=== PATIENT | female | born 1950 | race Caucasian/White ===

== ENCOUNTER → 2021-08-16 08:48 | Outpatient (CLI) | payer MEDICARE, SELFPAY ==
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
== END ==
PROVIDERS: PCP Nurse Practitioner Family; Visit Provider Nurse Practitioner Family
DX: I70.213 Atherosclerosis of native arteries of extremities with intermittent claudication, bilateral legs (principal); M79.605 Pain in left leg; M79.604 Pain in right leg
CPT/HCPCS: 93923

== ENCOUNTER → 2022-04-30 14:07 | Outpatient (POV) | payer MEDICARE, SELFPAY | PROVIDERS: Visit Provider Dermatology | DX: Z00.00 Encounter for general adult medical examination without abnormal findings (principal) ==

== ENCOUNTER 2024-01-30 09:00 | Outpatient (RCR) | payer MEDICARE, SELFPAY | END 2024-01-30 10:15 | disposition home or self-care (01) | LOC: PT 09:00 | PROVIDERS: Visit Provider Orthopaedic Surgery | DX: M25.561 Pain in right knee (principal); Z96.651 Presence of right artificial knee joint | CPT/HCPCS: 97010; 97110; 97112; 97116; 97140; 97163; 97164; 97530 ==

== ENCOUNTER 2024-10-19 11:00 | Outpatient (RCR) | payer MEDICARE, SELFPAY | END 2024-10-19 23:59 | disposition home or self-care (01) | LOC: PT 11:00 | PROVIDERS: PCP Nurse Practitioner Family; Visit Provider Orthopaedic Surgery | DX: M17.12 Unilateral primary osteoarthritis, left knee (principal); Z96.652 Presence of left artificial knee joint | CPT/HCPCS: 97014; 97016; 97110; 97163; 97530; G0283 ==

== ENCOUNTER 2025-06-28 10:17 | Emergency (ER) | payer MEDICARE, SELFPAY ==
[2025-06-28 10:19] VITALS: BP 176/86; PULSE 59; O2SAT 97
--- NOTE | 2025-06-28 10:23 | CT_ITS ---
FINAL REPORT TECHNIQUE: Thin section axial images were obtained from skull base to vertex without contrast. Coronal and sagittal reconstruction images were obtained from the axial data. Exam was performed using dose reduction techniques such as automated exposure control, adjustment of the mA and kV according to patient size, and use of iterative reconstruction technique. CLINICAL HISTORY: fall COMPARISON: None FINDINGS: There is atrophy. No mass effect or midline shift. No intracranial hemorrhage. No hydrocephalus. Periventricular low density is likely related to changes of chronic small vessel ischemia. The basilar cisterns are preserved. The posterior fossa is without acute abnormality. There is mild soft tissue edema involving the left parietal scalp. No acute osseous abnormality is identified. IMPRESSION: No acute intracranial abnormality. Atrophy and changes suggesting chronic small vessel ischemia. Reviewed, Interpreted and Dictated by Olesya Ferreira MD Transcribed by Fara Posadas Authenticated and [facility]
--- NOTE | 2025-06-28 10:23 | CT_ITS ---
FINAL REPORT TECHNIQUE: Thin section axial images were obtained through the cervical spine without contrast. Multiplanar reconstruction images were obtained from the axial data. Exam was performed using dose reduction techniques. This study was performed with techniques to keep radiation doses as low as reasonably achievable (ALARA). Individualized dose reduction techniques using automated exposure control or adjustment of mA and/or kV according to the patient's size were employed. CLINICAL HISTORY: fall COMPARISON: None FINDINGS: There is no acute fracture or acute malalignment of the cervical spine. There is no evidence of unilateral or bilateral facet lock. The craniocervical junction is intact. There is multilevel degenerative disc disease present, most pronounced at the C5-6 and C6-7 levels. Vertebral body height is preserved. No acute paraspinal abnormality is identified. IMPRESSION: No acute osseous abnormality of the cervical spine. Reviewed, Interpreted and Dictated by Olesya Ferreira MD Transcribed by Fara Posadas Authenticated and [facility]
--- NOTE | 2025-06-28 10:23 | CT_ITS ---
FINAL REPORT CLINICAL HISTORY: fall COMPARISON: None FINDINGS: Axial images through the pelvis were performed by computed tomography. Sagittal and coronal reconstruction images were performed. This study was performed with techniques to keep radiation doses as low as reasonably achievable (ALARA). Individualized dose reduction techniques using automated exposure control or adjustment of mA and/or kV according to the patient's size were employed. No acute fracture of the pelvis or either hip is identified. No dislocation identified. There is degenerative joint disease involving both the SI joints and bilateral hips. No acute soft tissue abnormality. IMPRESSION: Degenerative changes without acute fracture of the pelvis or either hip. Reviewed, Interpreted and Dictated by Olesya Ferreira MD Transcribed by Fara Posadas Authenticated and [facility]
[2025-06-28 10:24] VITALS: BP 176/86; PULSE 55; RESP 14; TEMP 36.4; O2SAT 97; BMI 26.6
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
--- NOTE | 2025-06-28 10:33 | PC.WOUNDNOTE ---
pt to ct
--- OUTSIDE RECORDS SUMMARY | 2025-06-28 10:35 | XMS_ITS | Referral Summary ---
Author Organization [facility] Address [address] [place] [address] Phone Care Team Providers Care Yoke Presser Name Role Phone Win Phan MD Primary Care Provider Allergies Active Allergy Reactions Criticality Noted Date Comments Sulfa Antibiotics Hives,Shortness of Breath High 09/2015 Medications bisoprolol (ZEBETA) 5 MG TABS Take 5 mg by mouth daily. Active Active Problems Problem Noted Date Diagnosed Date Acute lateral meniscus tear of left knee 016 Acute lateral meniscus tear of left knee 016 Acute medial meniscus tear of right knee 016 Social History Tobacco Use Types Packs/Day Years Used Date Smoking Tobacco: Never Smokeless Tobacco: Never Alcohol Use Standard Drinks/Week Comments No 0 (1 standard drink = 0.6 oz pur e alcohol) Comments No Sex and Gender Information Value Date Recorded Sex Assigned at Not on file Legal Sex Female 8:46 PM EDT Gender Identity Female 05/13/2018 5:49 PM EDT Sexual Orientation Not on file Last Filed Vital Signs Vital Sign Reading Time Taken Comments Blood Pressure 179/84 05/27/2018 12:25 PM EDT Pulse 46 05/27/2018 12:36 PM EDT Temperature 36.2 C (97.2 F) 05/27/2018 12:10 PM EDT Respiratory Rate 17 05/27/2018 12:36 PM EDT Oxygen Saturation 100% 05/27/2018 12:25 PM EDT Inhaled Oxygen Concentration - - Weight 85.7 kg (189 lb) 05/27/2018 10:25 AM EDT Height 165.1 cm (5' 5 ) 05/27/2018 10:25 AM EDT Body Mass Index 31.45 05/27/2018 10:25 AM EDT Functional Status * Are you deaf or do you have serious difficulty hearing? Answer Date of Assessment Author No 05/26/2018 10:31 AM EDT DayDari Registered Nurse * Are you blind or do you have serious difficulty seeing, even when wearing glasses? Answer Date of Assessment Author No 05/26/2018 10:31 AM EDT DayDari Registered Nurse * Do you have serious difficulty walking or climbing stairs? (5 years old or older) Answer Date of Assessment Author No 05/26/2018 10:31 AM EDT DayDari Registered Nurse * Do you have difficulty dressing or bathing? (5 years old or older) Answer Date of Assessment Author No 05/26/2018 10:31 AM EDT DayDari Registered Nurse * Because of a physical, mental, or emotional condition, do you have difficulty doing errands alone such as visiting a doctor???s office or shopping? (15 years old or older) Answer Date of Assessment Author No 05/26/2018 10:31 AM EDT DayDari Registered Nurse Mental Status * Because of a physical, mental, or emotional condition, do you have serious difficulty concentrating, remembering, or making decisions? (5 years old or older) Answer Entry Date Author No 05/26/2018 10:31 AM EDT DayDari Registered Nurse Plan of Treatment Not on file Medical Devices Implanted Type Area Sandblast Or Shotblast Equipment Tender Device Identifier Shelf Expiration Date Model / Serial / Lot Clarix Cord 1k 4.0x3.0 Cm Implanted:Qty: 1 on 07/09/2017 by Kenzie Torres DPM at [facility] Right: Foot [employer] CR-10-3750 / / Hammerfix Implant Small Implanted:Qty: 1 on 07/09/2017 by Kenzie Torres DPM at [facility] Right: Foot [employer] [id number] / / Clarix Cord 1k 2.5x2.5cn Implanted:Qty: 1 on 05/27/2018 by Kenzie Torres DPM at [facility] Left: Foot [employer] 02/10/2020 CR-10-2525 / [id number] / Administered Medications Insurance Care Teams Yoke Presser Relationship Specialty Start Date End Date Win Phan MD PCP - General Family Medicine 02/28/15
--- OUTSIDE RECORDS SUMMARY | 2025-06-28 10:35 | XMS_ITS | Clinical Summary ---
Author Organization [facility] Address [address] [place] [address] Phone Care Team Providers Care Climatology Professor Name Role Phone Win Phan MD Primary Care Provider [phone] Allergies Active Allergy Reactions Criticality Noted Date [...] Mass Index 31.45 05/27/2018 10:25 AM EDT Plan of Treatment Health Maintenance Due Date Last Done Comments Hepatitis C Screening 1948 DTap,Tdap,and Td (1 - Tdap) 1959 Pneumococcal 50+ (1 of 1 - PCV) 1998 Shingrix (#1) 1998 DEXA Scan 2013 RSV Vaccine (60+ or ) (1 - 1-dose 75+ series) 2023 Influenza Vaccine (#1) 2025 HPV Aged Out No longer eligi ble based on patient's age to complete this topic Meningococcal conjugate matt nt 4 (MCV4) Aged Out No longer eligible b ased on patient's age to complete this topic RSV Immunization (<20 months) Aged Out No longer eligible based on patient's age to complete this topic Medical Devices Implanted Type Area Development And Planning Engineer Device Identifier Shelf Expiration Date Model / Serial / Lot Clarix Cord 1k 4.0x3.0 Cm Implanted:Qty: 1 on 07/09/2017 by Kenzie Torres DPM at [facility] Right: Foot [employer] CR-[id number] / / [employer] Implant Small Implanted:Qty: 1 on 07/09/2017 by Kenzie Torres DPM at [facility] Right: Foot [employer] [id number] / / Clarix Cord 1k 2.5x2.5cn Implanted:Qty: 1 on 05/27/2018 by Kenzie Torres DPM at [facility] Left: Foot [employer] 02/10/2020 CR-10-2525 / [id number] / Insurance H[employer] MEDICARE ALL OTHER Care Teams Climatology Professor Relationship Specialty Start Date End Date Win Phan MD PCP - General Family Medicine 02/28/15
--- OUTSIDE RECORDS SUMMARY | 2025-06-28 10:35 | XMS_ITS | Encounter Summary ---
Author Organization [facility] Address [address] [place] [address] Phone Care Team Providers Care Finish Mender Name Role Phone Win Phan MD Primary Care Provider Encounter Details Date Type Department Care Team ([facility] st Contact Info) Description 06/01/2018 Discharge Call Center Patient Call Center [address] [place] [id number] Social History Tobacco Use Types Packs/Day Years [...] PM EDT Sexual Orientation Not on file documented as of this encounter Functional Status * Are you deaf or do you have serious difficulty hearing? Answer Date of Assessment Author No 05/26/2018 10:31 AM EDT Dari Mcbride Registered Nurse * Are you blind or do you have serious difficulty seeing, even when wearing glasses? Answer Date of Assessment Author No 05/26/2018 10:31 AM EDT Dari Mcbride Registered Nurse * Do you have serious difficulty walking or climbing stairs? (5 years old or older) Answer Date of Assessment Author No 05/26/2018 10:31 AM EDT Dari Mcbride Registered Nurse * Do you have difficulty dressing or bathing? (5 years old or older) Answer Date of Assessment Author No 05/26/2018 10:31 AM EDT Day, Bet h, Registered Nurse * Because of a physical, mental, or emotional condition, do you have difficulty doing errands alone such as visiting a doctor???s office or shopping? (15 years old or older) Answer Date of Assessment Author No 05/26/2018 10:31 AM EDT Dari Mcbride Registered Nurse documented as of this encounter Mental Status * Because of a physical, mental, or emotional condition, do you have serious difficulty concentrating, remembering, or making decisions? (5 years old or older) Answer Entry Date Author No 05/26/2018 10:31 AM EDT DayDari Registered Nurse documented in this encounter Plan of Treatment Not on file documented as of this encounter Visit Diagnoses Not on filedocumented in this encounter Care Teams Finish Mender Relationship Specialty Start Date End Date Win Phan MD PCP - General Family Medicine 02/28/15 documented as of this encounter
--- OUTSIDE RECORDS SUMMARY | 2025-06-28 10:35 | XMS_ITS ---
Author Organization Unknown Allergies, Adverse Reactions and Alerts Date IsAllergic OnsetDate Allergen Reaction Type Severity Srinath rgyCode Legacyallergictoid ReactionCode ReactionCodeSystemID Custom 05/09 00:00 :00 1 Percocet [id number] 05/09 00:00 :00 1 Sulfa 12/03 00:00 :00 1 Percocet [id number] 12/03 00:00 :00 1 Sulfa 08/20 00:00 :00 1 Percocet [id number] 08/20 00:00 :00 1 Sulfa 08/05 00:00 :00 1 Percocet [id number] 08/05 00:00 :00 1 Sulfa 08/05 00:00 :00 1 Percocet [id number] 08/05 00:00 :00 1 Sulfa 08/04 00:00 :00 1 Percocet [id number] 08/04 00:00 :00 1 Sulfa
--- OUTSIDE RECORDS SUMMARY | 2025-06-28 10:35 | XMS_ITS | Clinical Summary ---
Author Organization [facility] Address [address] [place] [id number] Care Team Providers Care Shingle Packer Name Role Phone Pacheco Phan Primary Care Provider [phone] Allergies Active Allergy Reactions Criticality Noted Date Comments Oxycodone-Acetamin ophen Nausea And Vomiting High 08/28/2023 SYNCOPE, denies allergy to Acetaminophen Sulfa (Sulfonamide Antibiotics) Hives,Shortness Of Breath High 02/28/2015 Medications bisoprolol (ZEBETA) 10 mg tablet Take 1 Tab by mouth daily. 0 Active losartan (COZAAR) 25 mg Tablet Take 25 mg by mouth daily. 3 Active MULTIVITAMIN PO Take by mouth daily. Active methylPREDNISolo ne (Medrol, Stan,) 4 mg tab (dosepak)Indicat ions:Aftercare following left knee joint replacement surgery follow package directions 21 Tablet 5 Active Active Problems Problem Noted Date Diagnosed Date Primary osteoarthritis of left knee 07/13/2024 History of total knee arthroplasty, right 2023 Primary osteoarthritis of right knee 10/22/2023 Family History Medical History Relation Name Comments Arthritis Mother Wendy Mei Diabetes Mother Wendy Mei High Blood Pressure Mother Wendy Mei Stroke Mother Wendy Mei Anesthesia Complications Neg Hx Heart Problems Neg Hx Relation Name Status Comments Mother Wendy Mei Social History Tobacco Use Types Packs/Day Years Used Date Smoking Tobacco: Never Smokeless Tobacco: Never Tobacco Cessation:Counseling Given: Not Answered Alcohol Use Standard Drinks/Week Comments Never 0 (1 standard drink = 0.6 oz pur e alcohol) Comments No Sex and Gender Information Value Date Recorded Sex Assigned at Not on file Legal Sex Female 4:40 PM EST Gender Identity Not on file Sexual Orientation Not on file Last Filed Vital Signs Vital Sign Reading Time Taken Comments Blood Pressure 155/75 08/30/2024 11:25 AM EST Pulse 51 08/30/2024 11:25 AM EST Temperature 36.2 C (97.2 F) 08/30/2024 11:00 AM EST Respiratory Rate 18 08/30/2024 11:25 AM EST Oxygen Saturation 99% 08/30/2024 11:00 AM EST Inhaled Oxygen Concentration - - Weight 72.1 kg (159 lb) 11/16/2024 2:08 PM EST Height 162.6 cm (5' 4 ) 11/16/2024 2:08 PM EST Body Mass Index 27.29 11/16/2024 2:08 PM EST Plan of Treatment Health Maintenance Due Date Last Done Comments Lipid Screening 1966 Tetanus Vaccination (Every 1 0 Years) 1966 Hepatitis C Virus (HCV) Screening 1969 Pneumococcal Vaccine: 50+ Ye ars (1 of 1 - PCV) 1998 Zoster-RZV(Shingrix) (1 of 2) 1998 Fall Risk Assessment 2013 Osteoporosis Screening 2013 RSV Vaccines (1 - 1-dose 75+ series) 2023 Advance Care Planning 10/20/2024 BMI Counseling 10/20/2024 Depression Screening 10/20/2024 COVID-19 Vaccine (3 - 2024-2 6 season) 2025 11/22/2020, 10/25/2020 Influenza Vaccination (#1) 2025 Breast Cancer Screening Discontinued 08/29/20, 01/18/2017, 09/09/2015, Additional history exists Medical Devices Implanted Type Area Hoisting Machine Operator Device Identifier Shelf Expiration Date Model / Serial / Lot Smartset Mv 40g - Eo - [id number] Implanted:Qty: 1 on 12/15/2023 by Corby Schafer MD at [facility] Right: Knee * J \T\ J DEPU[employer] [id number] 04/18/2025 3122-040 / / [id number] Smartset Mv 40g - Eo - [id number] Implanted:Qty: 1 on 12/15/2023 by Corby Schafer MD at [facility] Right: Knee * J \T\ J DEPU[employer] [id number] 04/18/2025 3122-040 / / [id number] Attune Femoral Cruciate Ret Narrow Size 6n Right Cemented - [id number] Implanted:Qty: 1 on 12/15/2023 by Corby Schafer MD at [facility] Right: Knee [employer] \T\ [employer] [id number] 09/18/2033 [id number] / / [id number] Attune Tibial Base Fixed Bearing Size 5 Centented - [id number] Implanted:Qty: 1 on 12/15/2023 by Corby Schafer MD at [facility] Right: Knee * J \T\ J DEPU[employer] [id number] 10/19/2033 [id number] / / [id number] Attune Tibial Insert Fixed Bearing Cruciate Retaining Size 6,6mm Aox - [id number] Implanted:Qty: 1 on 12/15/2023 by Corby Schafer MD at [facility] Right: Knee [employer] \T\ [employer] [id number] 06/19/2028 [id number] / / [id number] Attune Patella Medialized Anatomic 32mm Cemented Aox - [id number] Implanted:Qty: 1 on 12/15/2023 by Corby Schafer MD at [facility] Right: Knee * J \T\ J [employer] [id number] 10/19/2028 [id number] / / [id number] Insert Attune Aox Upchrg - [id number] Implanted:Qty: 1 on 12/15/2023 by Corby Schafer MD at [facility] Right: Knee [employer] \T\ [employer] [id number] / / Adv Pat Julissa Upchrg - [id number] Implanted:Qty: 1 on 12/15/2023 by Corby Schafer MD at [facility] Right: Knee [employer] \T\ [employer] [id number] / / Knee Attune Fb - [id number] Implanted:Qty: 1 on 12/15/2023 by Corby Schafer MD at [facility] Right: Knee [employer] \T\ [employer] [id number] / / Smartset Mv 40g - Eo - [id number] Implanted:Qty: 2 on 08/30/2024 by Corby Schafer MD at [facility] Left: Knee * J \T\ J [employer]PU[employer] [id number] 11/19/2025 3122-040 / / [id number] Attune Patella Medialized Anatomic 32mm Cemented Aox - [id number] Implanted:Qty: 1 on 08/30/2024 by Corby Schafer MD at [facility] Left: Knee * J \T\ J [employer] [id number] 06/19/2029 [id number] / / [id number] Attune Knee Syst Tibial Insert Fb Med Stab Sz 5 Left 7mm Aox - [id number] Implanted:Qty: 1 on 08/30/2024 by Corby Schafer MD at [facility] Left: Knee [employer] \T\ [employer] [id number] 07/19/2032 [id number] / / [id number] Attune Femoral Cruciate Retaining Size 5 Left Cemented - [id number] Implanted:Qty: 1 on 08/30/2024 by Corby Schafer MD at [facility] Left: Knee * J \T\ J [employer]PUY [id number] 04/18/2034 1504-00-105 / / [id number] Attune Tibial Base Fixed Bearing Size 5 Centented - [id number] Implanted:Qty: 1 on 08/30/2024 by Corby Schafer MD at [facility] Left: Knee * J \T\ J [employer]PU[employer] [id number] 05/19/2034 [id number] / / [id number] Attune Fb With Dom - [id number] Implanted:Qty: 1 on 08/30/2024 by Corby Schafer MD at [facility] Left: Knee [employer] \T\ [employer] [id number] / / Procedures Procedure Name Priority Date/Time Associated Diagnosis Comments MAMM-SCREENING DIRECT DIGITAL Routine 08/29/2018 9:46 AM EST Visit for screening mammogram from Last 3 Months or Most Recently Relevant to Health Maintenance Results * MAMM-SCREENING DIRECT DIGITAL (08/29/2018 9:46 AM EST) Anatomical Region Laterality Modality Bilateral Mammography 08/31/2018 9:35 AM EST Impressions 08/31/2018 9:37 AM EST IMPRESSION: No direct or indirect evidence of malignancy is seen on the current study. BI-RADS CATEGORY: 2 - BENIGN RECOMMENDED FOLLOW-UP: Bilateral Follow up Mamm in 1 Yr. This study was performed and interpreted using full-field digital mammographic and computer-aided detection. The [employer] recommends annual screening mammography for women age 40 and above. Please note that mammography is not 100% accurate in diagnosing breast cancer. A routine breast examination is recommended to correlate with mammographic findings. Signed By: Thien Dhaliwal MD 08/31/2018 9:37 AM EST MAMM-SCREENING DIRECT DIGITAL REASON FOR EXAMINATION: Screening COMPARISON: Prior studies recent 2016 LIMITATIONS OF EXAM: No significant limitations. DENSITY: The breasts are almost entirely fatty. FINDINGS: Computer aided detection assisted in the interpretation of the mammogram. Vague asymmetry upper outer aspect right breast similar to prior studies there are some benign-appearing calcifications of both breasts No suspicious mass, architectural distortion or groupings of suspicious calcifications are seen. Procedure Note Thien Dhaliwal MD - 08/31/2018 MAMM-SCREENING DIRECT DIGITAL REASON FOR EXAMINATION: Screening COMPARISON: Prior studies recent 2016 LIMITATIONS OF EXAM: No significant limitations. DENSITY: The breasts are almost entirely fatty. FINDINGS: Computer aided detection assisted in the interpretation of the mammogram.Vague asymmetry upper outer aspect right breast similar to prior studiesthere are some benign-appearing calcifications of both breasts Nosuspicious mass, architectural distortion or groupings of suspiciouscalcifications are seen. IMPRESSION: No direct or indirect evidence of malignancy is seen on the currentstudy. BI-RADS CATEGORY: 2 - BENIGN RECOMMENDED FOLLOW-UP: Bilateral Follow up Mamm in 1 Yr. This study was performed and interpreted using full-field digitalmammographic and computer-aided detection. The [employer] recommends annual screening mammographyfor women age 40 and above. Please note that mammography is not 100% accurate in diagnosing breastcancer. A routine breast examination is recommended to correlate withmammographic findings. Signed By: Thien Dhaliwal MD Pacheco Phan G MAMMO ORDERABLES Final Resul t from Last 3 Months or Most Recently Relevant to Health Maintenance Insurance [employer] MED[employer] Member Subscriber Plan / Payer (Ef fective 2017-Present) Name:Jody Del Rosario Relation to Subscriber:Self Name:Jody Del Rosario Payer ID:[id number] (NAIC) Type:Threadbox Address: [place] [id number] [employer] Care Teams Shingle Packer Relationship Specialty Start Date End Date Pacheco Phan [address] [place] [phone] PCP - General 08/11/14
--- NOTE | 2025-06-28 10:39 | PC.NURSE ---
pt returned from ct
[2025-06-28] MEDS: ONDANSETRON 4MG ODT 4 MG SL (10:49)
[2025-06-28] MEDS: TET/DIPHTH/PERT-ADULT 0.5ML SYRINGE 0.5 ML IM (10:49)
[2025-06-28] MEDS: HYDROCODONE/APAP 5/325 MG TABLET 2 TAB PO (10:49)
--- NOTE | 2025-06-28 10:56 | PC.NURSE ---
pt medicated per emar. family at bedside. call light within reach
[2025-06-28 11:01] VITALS: BP 171/83; PULSE 57; O2SAT 96
[2025-06-28 12:14] VITALS: BP 158/87; PULSE 51; RESP 18; TEMP 36.9; O2SAT 95
== END 2025-06-28 12:23 | disposition home or self-care (01) ==
PROVIDERS: Emergency Provider Student in an Organized Health Care Education/Training Program; PCP Family Medicine
DX: S06.0X0A Concussion without loss of consciousness, initial encounter (principal); I10 Essential (primary) hypertension
CPT/HCPCS: 12002; 70450; 72125; 72192; 90471; 90715; 99284; 99285; Q0162

== ENCOUNTER 2025-07-22 07:35 | Outpatient (CLI) | payer MEDICARE, SELFPAY ==
--- NOTE | 2025-07-22 08:00 | FL_ITS ---
FINAL REPORT CLINICAL HISTORY: evaluation and treat for swallowing issues pt stated with thin liquids it will trigger a cough loss of voice x 3 months unknown why .29 min flouro time 19.73 mGy 187.14 DAP FINDINGS: ESOPHAGRAM HISTORY: dysphagia PROCEDURE: The patient ingested barium. Spot and overhead films were obtained. FINDINGS: . There was anthony aspiration to thee initial swalloww of thickened barium. Anterior indentation upon the cervical esophagus is suspicious for a small esophageal web. Imaging of the distal esophagus was limited secondary to the patient's anthony aspiration but no gross abnormality identified. IMPRESSION: 1. Anthony aspiration of liquid barium. Consider modified barium swallow evaluation 2. 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 3. Further evaluation the esophagus is limited secondary to aspiration. Fluoroscopy time: 29 seconds Radiation exposure in Reference air Kerma: 19.73 mGy Reviewed, Interpreted and Dictated by Benjamin Edwards MD Transcribed by DIVYA Yo Authenticated and [facility]
[2025-07-22] MEDS: BARIUM SULFATE (E-Z-HD 340GM);135ML BOTTLE 135 ML PO (08:15)
== END 2025-07-22 23:59 | disposition home or self-care (01) ==
LOC: RAD 07:36
PROVIDERS: PCP Family Medicine; Visit Provider Nurse Practitioner
DX: R93.3 Abnormal findings on diagnostic imaging of other parts of digestive tract (principal); R49.0 Dysphonia; R09.A2 Foreign body sensation, throat; R13.10 Dysphagia, unspecified
CPT/HCPCS: 74220

== ENCOUNTER 2025-08-10 08:41 | Outpatient (RCR) | payer MEDICARE, SELFPAY | END 2025-08-10 23:59 | disposition home or self-care (01) | LOC: OT 08:41 | DX: R29.818 Other symptoms and signs involving the nervous system (principal) | CPT/HCPCS: 97166 ==

== ENCOUNTER 2025-08-18 08:45 | Outpatient (RCR) | payer MEDICARE, SELFPAY | END 2025-08-18 23:59 | disposition home or self-care (01) | LOC: PT 08:45 | DX: R29.818 Other symptoms and signs involving the nervous system (principal) | CPT/HCPCS: 97162 ==

== ENCOUNTER 2025-09-07 15:00 | Outpatient (RCR) | payer MEDICARE, SELFPAY | END 2025-09-07 23:59 | disposition home or self-care (01) | LOC: PT 15:00 | PROVIDERS: Visit Provider Internal Medicine | DX: R29.818 Other symptoms and signs involving the nervous system (principal) | CPT/HCPCS: 97530 ==

== ENCOUNTER 2025-09-07 15:00 | Outpatient (RCR) | payer MEDICARE, SELFPAY | END 2025-09-07 23:59 | disposition home or self-care (01) | LOC: OT 15:00 | PROVIDERS: Visit Provider Internal Medicine | DX: R29.818 Other symptoms and signs involving the nervous system (principal) | CPT/HCPCS: 97110; 97530 ==